=== PATIENT | male | born 1980 | race Caucasian/White ===

== ENCOUNTER 2017-11-02 11:00 | Emergency (ER) | payer OTHER ==
[2017-11-02 11:34] VITALS: BMI 28.1
[2017-11-02 11:38] LABS: URINE BILIRUBIN NEGATIVE (NEGATIVE); URINE BLOOD NEGATIVE (NEGATIVE); URINE GLUCOSE (UA) NEGATIVE (NEGATIVE); URINE KETONE NEGATIVE (NEGATIVE); URINE LEUKOCYTE ESTERASE NEGATIVE Leu/uL (NEGATIVE); URINE PROTEIN NEGATIVE mg/dL (<30 mg/dL); URINE UROBILINOGEN 0.2 E.U./dL (<1 E.U./dL)
[2017-11-02 11:40] LABS: URINE APPEARANCE CLEAR (CLEAR); URINE COLOR STRAW (YELLOW)
[2017-11-02 11:53] VITALS: RESP 16; TEMP 97.9; O2SAT 100
--- NOTE | 2017-11-02 11:57 | ED PDOC ---
Arrival/HPI - General Time Seen by Provider: 11/02/17 11:28 Historian: Patient, Spouse () - History of Present Illness Narrative History of Present Illness (Text): 11/02/17 11:24 A 37 year old male, with no significant past medical history, whom is accompanied by , presents to the emergency department complaining of lower back pain. Patient reports he has had this chronic pain for 10 years from falling on his back as a child. Now pain returned this past month and worsened during the weekend. Patient notes having difficulty ambulating because when moving his right leg, the pain becomes more severe. Patient denies any weakness , numbness, tingling, or bladder or bowel incontinence. Patient denies of any fever, hematuria, dysuria, abdominal pain, constipation/diarrhea. Reports taking tylenol without much relief. Past Medical History - Provider Review Nursing Documentation Reviewed: Yes Family/Social History - Physician Review Nursing Documentation Reviewed: Yes Family/Social History: No Known Family HX Allergies/Home Meds Allergies/Adverse Reactions: Allergies No Known Allergies Allergy (Unverified 11/02/17 11:29) Review of Systems - Physician Review All systems were reviewed & negative as marked: Yes - Review of Systems Constitutional: absent: Fevers Respiratory: absent: SOB, Cough, Sputum, Wheezing Cardiovascular: absent: Chest Pain Gastrointestinal: absent: Abdominal Pain, Constipation, Diarrhea, Nausea, Vomiting Genitourinary Male: absent: Dysuria, Hematuria Musculoskeletal: Back Pain (lower back pain, more so on right side than left side). absent: Neck Pain, Joint Swelling Neurological: absent: Headache, Dizziness Physical Exam Vital Signs Reviewed: Yes Vital Signs Temp Pulse Resp BP Pulse Ox 11/02/17 11:30 97.9 F 62 16 124/97 H 100 Temperature: Afebrile Blood Pressure: Normal Pulse: Regular Respiratory Rate: Normal Appearance: Positive for: Well-Appearing, Non-Toxic, Comfortable Pain Distress: None Mental Status: Positive for: Alert and Oriented X 3 - Systems Exam Head: Present: Atraumatic, Normocephalic Pupils: Present: PERRL Extroacular Muscles: Present: EOMI Conjunctiva: Present: Normal Mouth: Present: Moist Mucous Membranes Neck: Present: Normal Range of Motion Respiratory/Chest: Present: Clear to Auscultation, Good Air Exchange. No: Respiratory Distress, Accessory Muscle Use Cardiovascular: Present: Regular Rate and Rhythm, Normal S1, S2. No: Murmurs Abdomen: Present: Normal Bowel Sounds. No: Tenderness, Distention, Peritoneal Signs Back: Present: Pain with Leg Raise (to R), Other (paraspinal muscle spam to right lower back). No: Midline Tenderness Upper Extremity: Present: Normal Inspection. No: Cyanosis, Edema Lower Extremity: Present: Normal ROM, Neurovascularly Intact. No: CALF TENDERNESS Neurological: Present: GCS=15, CN II-XII Intact, Speech Normal, Gait Normal Skin: Present: Warm, Dry, Normal Color. No: Rashes Psychiatric: Present: Alert, Oriented x 3, Normal Insight, Normal Concentration Medical Decision Making ED Course and Treatment: 11/02/17 11:29 Impression:37 year old male with lower back pain. Physical exam shows paraspinal muscle spasm to right lower back; positive straight leg test. Presentation appears musculoskeletal in nature, but due to no prior imaging, with get CT Plan: -- CT abd/pelvis -- Valium -- Toradol --ua -- Reassess and disposition Progress Notes: 11/02/17 12:23 UA negative 11/02/2017 12:27 Abd/Pelvis CT IMPRESSION: Unremarkable non contrast enhanced CT of the abdomen and pelvis. Dictator: Carlos Puri MD 11/02/17 12:37 SD Rx Database reviewed with no records for patient. Patient is neurologically intact with negative CT. He reports that pain is improved and he is ambulating around the ED without issue. Will dc to follow-up with PMD - Lab Interpretations Lab Results: Lab Results 11/02/17 11:32: Urine Color Straw, Urine Appearance Clear, Urine pH 6.0, Ur Specific [place] 1.015, Urine Protein Negative, Urine Glucose (UA) Negative, Urine Ketones Negative, Urine Blood Negative, Urine Nitrate Negative, Urine Bilirubin Negative, Urine Urobilinogen 0.2, Ur Leukocyte Esterase Negative - RAD Interpretation Radiology Orders: 11/02/17 11:29 ABD & PELVIS W/O PO OR IV CONT [CT] Stat - Medication Orders Current Medication Orders: Discontinued Medications Diazepam (Valium) 5 mg PO STAT STA PRN Reason: Protocol Stop: 11/02/17 11:30 Last Admin: 11/02/17 12:02 Dose: 5 mg Ketorolac Tromethamine (Toradol) 60 mg IM STAT STA Stop: 11/02/17 11:30 Last Admin: 11/02/17 12:02 Dose: 60 mg MAR Pain Assessment Document 11/02/17 12:02 HI (Rec: 11/02/17 12:02 MT [id number]) Pain Reassessment Is this a pain reassessment? No Sleep Is patient sleeping during reassessment? No Presence of Pain Presence of Pain Yes Location Upper or Lower Lower Pain Location Body Site Back IM Administration Charges Document 11/02/17 12:02 HI (Rec: 11/02/17 12:02 MT [id number]) Injection Site MAR Injection Site Right Gluteus Talha Charges for Administration # of IM Administrations 1 - Scribe Statement The provider has reviewed the documentation as recorded by the Ignacio Alcantara Provider Scribe Attestation: All medical record entries made by the Scribe were at my direction and personally dictated by me. I have reviewed the chart and agree that the record accurately reflects my personal performance of the history, physical exam, medical decision making, and the department course for this patient. I have also personally directed, reviewed, and agree with the discharge instructions and disposition. Disposition/Present on Arrival - Present on Arrival Any Indicators Present on Arrival: No - Disposition Have Diagnosis and Disposition been Completed?: Yes Diagnosis: Back pain Disposition: HOME/ ROUTINE Disposition Time: 12:38 Patient Plan: Discharge Condition: GOOD Discharge Instructions (ExitCare): Chronic Back Pain (ED) Additional Instructions: Follow-up with PMD within 2 days. Return to ED if condition worsens. Flexeril for severe spasm. Motrin for mild pain. Prescriptions: Cyclobenzaprine [Cyclobenzaprine HCl] 10 mg PO TID #15 tab Forms: WORK NOTE
--- NOTE | 2017-11-02 12:29 | CT ---
PROCEDURE: CT Abdomen and Pelvis without intravenous contrast HISTORY: R sided back pain radiating to buttock COMPARISON: None. TECHNIQUE: Without contrast.. Contrast Dose: Radiation dose: Total exam DLP = 416 mGy-cm. This CT exam was performed using one or more of the following dose reduction techniques: Automated exposure control, adjustment of the mA and/or kV according to patient size, and/or use of iterative reconstruction technique. FINDINGS: LOWER THORAX: Unremarkable. LIVER: Unremarkable. No gross lesion or ductal dilatation. GALLBLADDER AND BILE DUCTS: Unremarkable. PANCREAS: Unremarkable. No gross lesion or ductal dilatation. SPLEEN: Unremarkable. ADRENALS: Unremarkable. No mass. KIDNEYS AND URETERS: Unremarkable. No hydronephrosis. No solid mass. VASCULATURE: Unremarkable. No aortic aneurysm. BOWEL: Unremarkable. No obstruction. No gross mural thickening. APPENDIX: Unremarkable. Normal appendix. PERITONEUM: Unremarkable. No free fluid. No free air. LYMPH NODES: Unremarkable. No enlarged lymph nodes. BLADDER: Unremarkable. REPRODUCTIVE: Unremarkable. BONES: No acute fracture. OTHER FINDINGS: None. IMPRESSION: Unremarkable non contrast enhanced CT of the abdomen and pelvis.
[2017-11-02 13:07] VITALS: BP 128/78; PULSE 70
== END 2017-11-02 13:04 | disposition home or self-care (01) ==
LOC: ED 11:00
DX: M54.5 Low back pain (principal)
CPT/HCPCS: 74176; 81003; 96372; 99283; J1885